=== PATIENT | male | born 1950 | race Caucasian/White ===

== ENCOUNTER → 2017-06-14 | Outpatient (CLI) | payer MEDICARE, BC ==
--- NOTE | 2017-06-14 12:05 | NM ---
EXAMINATION TYPE: NM stress cardiolite complete DATE OF EXAM: 06/14/2017 COMPARISON: NONE HISTORY: History of hypertension and tobacco use quit 28 years ago as well as diabetes presents with chest pain and abnormal EKG. TECHNIQUE: After the intravenous administration of 10.3 mCi Tc 99m Sestamibi - Rest images obtained 45 minutes post injection. The patient exercised using a KAREN protocol and 1 minute prior to peak exercise was injected with 27.5 mCi Tc 99m Sestamibi - Stress images obtained 10 minutes post injecti on. FINDINGS: Targeted heart rate was achieved during performance of the study. Review of stress and rest SPECT butch ges demonstrates no distinct perfusion abnormality. There is poor uptake involving inferior lateral left ventricular wall which area of old infarct cannot be excluded though there is no significant hyp okinesia at this level and there is improved color intensity on stress images versus rest images. Gat ed analysis shows normal wall motion with an estimated left ventricular ejection fraction of 48 %. IMPRESSION: No scintigraphic evidence for reversible ischemia
--- NOTE | 2017-06-14 13:32 | ECHOF ---
Referral Reason:I10 Hypertension, R07.9 Chest pain MEASUREMENTS -------- HEIGHT: 162.6 cm WEIGHT: 97.1 kg BP: IVSd: 1.3 cm (0.6 - 1.1) LVIDd: 4.5 cm (3.9 - 5.3) LVPWd: 1.3 cm (0.6 - 1.1) IVSs: 1.5 cm LVIDs: 3.9 cm LVPWs: 1.4 cm LA Diam: 3.5 cm (2.7 - 3.8) LAESV Index (A-L): 25.34 ml/m Ao Diam: 2.9 cm (2.0 - 3.7) AV Cusp: 2.0 cm (1.5 - 2.6) LA Diam: 3.9 cm (2.7 - 3.8) MV EXCURSION: 16.312 mm (> 18.000) MV EF SLOPE: 55 mm/s (70 - 150) EPSS: 0.8 cm MV E Gennaro: 0.28 m/s MV DecT: 312 ms MV A Gennaro: 0.72 m/s MV E/A Ratio: 0.39 RAP: 5.00 mmHg RVSP: 12.26 mmHg FINDINGS -------- Sinus rhythm. This was a technically good study. The left ventricular size is normal. There is mild concentric left ventricular hypertrophy. Overa ll left ventricular systolic function is low-normal with, an EF between 50 - 55 %. The right ventricle is normal in size. The left atrial size is normal. Normal LA size by volume 22+/-6 ml/m2. The right atrial size is normal. There is mild aortic valve sclerosis. There is no evidence of aortic regurgitation. Mild mitral annular calcification present. Mild mitral regurgitation is present. Mild tricuspid regurgitation present. There is no evidence of pulmonary hypertension. The right v entricular systolic pressure, as measured by Doppler, is 12.26mmHg. There is no pulmonic regurgitation present. The aortic root size is normal. There is no pericardial effusion. CONCLUSIONS -------- 1. The left ventricular size is normal. 2. There is mild concentric left ventricular hypertrophy. 3. Overall left ventricular systolic function is low-normal with, an EF between 50 - 55 %. 4. There is mild aortic valve sclerosis. 5. Mild mitral annular calcification present. 6. Mild mitral regurgitation is present. 7. Mild tricuspid regurgitation present. 8. There is no evidence of pulmonary hypertension. 9. The right ventricular systolic pressure, as measured by Doppler, is 12.26mmHg. 10. There is no pulmonic regurgitation present. 11. The aortic root size is normal. 12. There is no pericardial effusion. ACADEMIC SERVICES PROFESSIONAL: Brittaney Culp RDCS
--- NOTE | 2017-06-14 14:01 | EST ---
EXERCISE STRESS AGE: 68 SEX: M HT: 71" WT: 214 PROTOCOL: Connor Cardiolite Stress Test STAGE: III DURATION OF EXERCISE: 10:00 HEART RATE REST: 84 BLOOD PRESSURE REST: 134/96 MAXIMUM HEART RATE ACHIEVED: 132 MAXIMUM BLOOD PRESSURE: 223/110 85% MPHR: 130 100% MPHR: 153 METS: 11.7 INDICATIONS: Chest pain, abnormal EKG CLINICAL INFORMATION: STRESS DATA: Pretesting physical examination showed a heart rate of 84, pressure is 134/96 mmHg. Baseline EKG showed sinus mechanism. The patient exercised on the treadmill according to Connor protocol for a total of 10 minutes and achieved 11.7 METS. Max heart rate was 132, which is about 86% of maximum predicted heart rate. Maximum blood pressure was 1 was 223/110 mmHg. Clinically, the patient did not have any symptoms of chest pain or discomfort. The EKG did not reveal any significant ST or T- wave abnormalities consistent with ischemia or meeting the criteria for ischemia. CONCLUSION: 1. Excellent exercise capacity. 2. Normal EKG in response to exercise. 3. Please follow up on the Cardiolite portion on separate report from the Radiology Department. MMODL / IJN: [id number] /
== END | disposition home or self-care (01) ==
LOC: RADNMMAIN 07:59
PROVIDERS: ATTEND Family Medicine
DX: I10 Essential (primary) hypertension (principal)
CPT/HCPCS: 93017; 93306; 78452; A9500

== ENCOUNTER → 2017-06-18 | Outpatient (CLI) | payer MEDICARE, BC ==
--- NOTE | 2017-06-18 09:40 | US ---
EXAMINATION TYPE: US carotid duplex BILAT DATE OF EXAM: 06/18/2017 COMPARISON: NONE CLINICAL HISTORY: I65.29 Carotid artery stenosis. Chest pain EXAM MEASUREMENTS: RIGHT: Peak Systolic Velocity (PSV) cm/sec ----- Right CCA: 80.8 ----- Right ICA: 72.6 ----- Right ECA: 118.0 ICA/CCA ratio: 0.9 RIGHT: End Diastole cm/sec ----- Right CCA: 22.1 ----- Right ICA: 18.1 ----- Right ECA: 21.6 LEFT: Peak Systolic Velocity (PSV) cm/sec ----- Left CCA: 79.3 ----- Left ICA: 59.0 ----- Left ECA: 76.3 ICA/CCA ratio: 0.7 LEFT: End Diastole cm/sec ----- Left CCA: 23.8 ----- Left ICA: 13.3 ----- Left ECA: 15.2 VERTEBRALS (direction of flow): Right Vertebral: Antegrade Left Vertebral: Antegrade Rhythm: Arrhythmia Bilateral intimal thickening, plaque bilateral bulb, no elevated velocities, no significant stenosis, limited visualization of bilateral ICA due to deep vessels. Suboptimal study per technologist due to tortuous course of vessels. Visualized portion of carotid bu lbs show mild eccentric plaque on the left. Velocity measurements and ratios in visualized portion of both internal carotid arteries is within normal limits. Technologist notes arrhythmia during real-ti me scanning. IMPRESSION: Suboptimal study without hemodynamically significant stenosis seen in either internal c arotid artery . Note is made of arrhythmia during real-time scanning, if this is not known finding fu rther investigation with 24-hour Holter monitoring would be advised Criteria for Assigning % of Stenosis / Diameter reduction (Estimation based on the indirect measurements of the internal carotid artery velocities (ICA PSV). 1. Normal (no stenosis)=ICA PSV < 125 cm/s: ratio < 2.0: ICA EDV<40 cm/s. 2. Less than 50% stenosis=ICA PSV < 125 cm/s: ratio < 2.0: ICA EDV<40 cm/s. 3. 50 to 69% stenosis=ICA PSV of 125 to 230 cm/s: ration 2.0 ? 4.0: ICA EDV 40-100 cm/s. 4. Greater than 70% stenosis to near occlusion= ICA PSV > 230 cm/s: ratio > 4.0: ICA EDV > 100 cm/s. 5. Near occlusion= ICA PSV velocities may be low or undetectable: variable ratio and ICA EDV. 6. Total occlusion=unable to detect flow.
--- NOTE | 2017-06-18 09:41 | US ---
EXAMINATION TYPE: US duplex aorta DATE OF EXAM: 06/18/2017 COMPARISON: NONE CLINICAL HISTORY: Z13.9 AAA Screening. Chest pain EXAM MEASUREMENTS: Abdominal Aorta: Proximal: 2.2 x 2.4cm Mid: 2.0 x 2.3cm Distal: 1.8 x 1.8cm Right Iliac: 1.2 x 1.3cm Left Iliac: 1.0 x 1.3cm Difficult and limited study due to patient body habitus and overlying midline bowel gas. Visualized portions of abdominal aorta appears wnl, no AAA seen at this time. IMPRESSION: Suboptimal study but no convincing ultrasound evidence for abdominal aortic aneurysm.
== END | disposition home or self-care (01) ==
LOC: RADUSWWP 08:22
PROVIDERS: ATTEND Family Medicine
DX: Z13.6 Encounter for screening for cardiovascular disorders (principal); I65.29 Occlusion and stenosis of unspecified carotid artery
CPT/HCPCS: 93880; 93979

== ENCOUNTER → 2017-06-24 | Outpatient (CLI) | payer MEDICARE, BC ==
--- NOTE | 2017-06-28 14:34 | HM ---
HOLTER MONITOR REPORT The patient was monitored for 24 hours. Baseline rhythm is sinus mechanism with normal conduction. The average rate 83 beats per minute, minimum 49, maximum 147 beats per minute. Ventricular ectopic activity was present in the form of frequent ventricular ectopic activity with occasional couplets and triplets. Supraventricular ectopic activity was present in the form of rare single PACs. No symptoms were reported. CONCLUSION: 1. Sinus mechanism baseline rhythm. 2. Frequent ventricular ectopic activity with occasional couplets and triplets with 4 complex ventricular tachycardia. 3. Rare supraventricular ectopic activity. 4. No symptoms were reported. MMODL / IJN: [id number] / MTDD
== END | disposition home or self-care (01) ==
LOC: RADECHMAIN 13:02
PROVIDERS: ATTEND Physician Assistant
DX: I49.3 Ventricular premature depolarization (principal); I47.2 Ventricular tachycardia
CPT/HCPCS: 93225; 93226

== ENCOUNTER 2017-07-02 06:34 | Day surgery (SDC) | payer MEDICARE, BC ==
[~2017-07-02 06:34] MED LIST: LACTATED RINGERS 1,000 ML IV SCH
[2017-07-02 07:09] VITALS: TEMP 98.2
[2017-07-02 07:15] LABS: Glucose,Whole Blood 172 mg/dL (75-99)
[2017-07-02] MEDS ORDERED: LIDOCAINE 1% INJ 10MG/ML (20 ML MDV) ONE (07:40)
[2017-07-02] MEDS ORDERED: PROPOFOL 10 MG/ML 20 ML VIAL IV ONE (07:40)
--- NOTE | 2017-07-02 08:20 | P.OP ---
Date of Procedure: 07/02/17 Preoperative Diagnosis: Patient history colon polyps Postoperative Diagnosis: Polypoid lesion at cecum and removed with snare polypectomy piecemeal, Procedure(s) Performed: Colonoscopy Anesthesia: MAC Surgeon: Lia Norman Estimated Blood Loss (ml): 0 IV fluids (ml): 300 Pathology: other (Cecal polyp) Condition: stable Disposition: PACU Indications for Procedure: History: Polyps Operative Findings: Cecal polyp, diverticuli, internal hemorrhoids Description of Procedure: Patient was taken to the endoscopy suite and following sedation rectal exam was performed. Patient was noted to have adequate sphincter tone no masses. Colonoscope was passed through the anus into the rectum. Was passed up to the sigmoid colon to splenic flexure. Was passed through the transverse colon hepatic flexure right colon down to the area of the cecum. Scope circumferential observation of the mucosa revealed a lesion in the cecum which was removed with snare polypectomy piecemeal and retrieved. It appeared the entire lesion had been removed. There was no evidence of active bleeding at the termination of removal. The scope was then carefully withdrawn being careful to observe the mucosa in the right colon transverse colon left colon sigmoid colon and rectum. Aproximately 6 minutes was taken to remove the scope from the cecum to the rectum. Patient was noted to have diverticuli and internal hemorrhoids. The scope was retroflexed in the rectum. Impression/plan: 1. Internal hemorrhoids 2. Diverticuli 3. Polypoid lesion at the cecum removed with snare polypectomy and retrieved Plan: 1. Repeat scope in 1 year
--- NOTE | 2017-07-02 08:21 | P.DS ---
Providers Attending physician: Lia Norman Primary care physician: Dave Venegas Plan - Discharge Summary Discharge Rx Participant: No New Discharge Prescriptions: No Action Lisinopril [Prinivil] 10 mg PO QAM metFORMIN HCL [Glucophage] 1,000 mg PO BID [place]-3 Fatty Acids/Fish Oil [Fish Oil 1,000 mg Softgel] 1 tab PO DAILY Multivitamin [Men's Multi-Vitamin] 1 tab PO DAILY Calcium Carbonate [Calcium] 1 tab PO DAILY Glimepiride [Amaryl] 2 mg PO BID Silodosin [Rapaflo] 8 mg PO DAILY Aspirin 325 mg PO Q6H PRN PRN Reason: Pain Discharge Medication List Lisinopril [Prinivil] 10 mg PO QAM 06/23/14 [History] metFORMIN HCL [Glucophage] 1,000 mg PO BID 06/23/14 [History] Aspirin 325 mg PO Q6H PRN 06/28/17 [History] Calcium Carbonate [Calcium] 1 tab PO DAILY 06/28/17 [History] Glimepiride [Amaryl] 2 mg PO BID 06/28/17 [History] Multivitamin [Men's Multi-Vitamin] 1 tab PO DAILY 06/28/17 [History] [place]-3 Fatty Acids/Fish Oil [Fish Oil 1,000 mg Softgel] 1 tab PO DAILY [History] Silodosin [Rapaflo] 8 mg PO DAILY 06/28/17 [History] Follow up Appointment(s)/Referral(s): Lia Norman MD [STAFF PHYSICIAN] - 1 Week Patient Instructions/Handouts: *Surgery [facility] - (Anesthesia) Endoscopy Discharge Instructions, Colonoscopy (DC) Discharge Disposition: HOME SELF-CARE
[2017-07-02 08:33] VITALS: BP 107/70; PULSE 72; RESP 18
== END 2017-07-02 08:58 | disposition home or self-care (01) ==
LOC: ORWHC2ENDO 06:34
PROVIDERS: ATTEND Surgery
DX: Z12.11 Encounter for screening for malignant neoplasm of colon (principal); D12.0 Benign neoplasm of cecum; K57.30 Diverticulosis of large intestine without perforation or abscess without bleeding; K64.8 Other hemorrhoids; Z86.010 Personal history of colon polyps; Z80.0 Family history of malignant neoplasm of digestive organs; R25.1 Tremor, unspecified; R39.198 Other difficulties with micturition; K59.00 Constipation, unspecified; E11.9 Type 2 diabetes mellitus without complications; I10 Essential (primary) hypertension; Z79.84 Long term (current) use of oral hypoglycemic drugs; Z79.899 Other long term (current) drug therapy; Z79.82 Long term (current) use of aspirin; Z87.891 Personal history of nicotine dependence
CPT/HCPCS: 88305; 45385; J2001; J2704; 45380

== ENCOUNTER 2018-07-03 07:47 | Day surgery (SDC) | payer MEDICARE, BC ==
[2018-07-01 14:57] VITALS: BMI 29.9
[~2018-07-03 07:47] MED LIST changes: +LIDOCAINE 1% 20 ML VIAL (10MG/ML) FOR IV START INTRADERMA PRN; +MIDAZOLAM (PF) 2 MG/2 ML VIAL IV PRN
[2018-07-03 08:23] VITALS: RESP 18; TEMP 97.5
[2018-07-03 08:36] LABS: Glucose,Whole Blood 218 mg/dL (75-99)
[2018-07-03] MEDS ORDERED: PROPOFOL 10 MG/ML 20 ML VIAL IV ONE (08:59)
[2018-07-03] MEDS ORDERED: LIDOCAINE 1% INJ 10MG/ML (20 ML MDV) ONE (08:59)
--- NOTE | 2018-07-03 09:28 | P.GSHP ---
History of Present Illness H&P Date: 07/03/18 CHIEF COMPLAINT: Colon screen HISTORY OF PRESENT ILLNESS: The patient is a 68-year-old male who presents for colon screen. Lower endoscopy was offered for further evaluation and management. PAST MEDICAL HISTORY: Please see list. PAST SURGICAL HISTORY: Please see list. MEDICATIONS: Please see list. ALLERGIES: Please see list. SOCIAL HISTORY: No illicit drug use FAMILY HISTORY: No reports of Crohn disease or ulcerative colitis. REVIEW OF ORGAN SYSTEMS: CONSTITUTIONAL: No reports of fevers or chills. PHYSICAL EXAM: VITAL SIGNS: Stable GENERAL: Well-developed pleasant in no acute distress. HEENT: No scleral icterus. Extraocular movements grossly intact. Moist buccal mucosa. NECK: Supple without lymphadenopathy. CHEST: Unlabored respirations. Equal bilateral excursions. CARDIOVASCULAR: Regular rate and rhythm. Distal 2+ pulses. ABDOMEN: Soft, nontender, nondistended. MUSCULOSKELETAL: No clubbing, cyanosis, or edema. ASSESSMENT: 1. Colon screen. PLAN: 1. Recommend proceeding with a lower endoscopy Past Medical History Past Medical History: Diabetes Mellitus, Hypertension Additional Past Medical History / Comment(s): kidney insufficiency. PANCREAS TROUBLE? History of Any Multi-Drug Resistant Organisms: None Reported Past Surgical History: Hernia Repair, Orthopedic Surgery Additional Past Surgical History / Comment(s): ORIF LEFT LEG. COLONOSCOPY Past Anesthesia/Blood Transfusion Reactions: No Reported Reaction, Motion Sickness Past Psychological History: No Psychological Hx Reported Smoking Status: Former smoker Past Alcohol Use History: None Reported Additional Past Alcohol Use History / Comment(s): QUIT 1989, FOR 20 YRS, 2 PPD. Past Drug Use History: None Reported - Past Family History Mother Family Medical History: No Reported History Brother(s) Family Medical History: Cancer Medications and Allergies Home Medications Medication Instructions Recorded Confirmed Type Lisinopril [Prinivil] 10 mg PO QAM 06/23/14 07/01/18 History metFORMIN HCL [Glucophage] 1,000 mg PO BID 06/23/14 07/01/18 History Calcium Carbonate [Calcium] 1 tab PO DAILY 06/28/17 07/01/18 History Glimepiride [Amaryl] 4 mg PO BID 06/28/17 07/01/18 History Multivitamin [Men's Multi-Vitamin] 1 tab PO DAILY 06/28/17 07/01/18 History [place]-3 Fatty Acids/Fish Oil [Fish 1 tab PO DAILY 06/28/17 07/01/18 History Oil 1,000 mg Softgel] Primidone [Mysoline] 2.5 tab PO BID 07/03/18 07/03/18 History Allergies Allergy/AdvReac Type Severity Reaction Status Date / Time No Known Allergies Allergy Verified 07/01/18 14:52 Surgical - Exam Vital Signs Temp Pulse Resp BP Pulse Ox 97.5 F L 85 18 163/91 95 07/03/18 08:21 07/03/18 08:21 07/03/18 08:21 07/03/18 08:21 07/03/18 08:21 Results - Labs Abnormal Lab Results - Last 24 Hours (Table) 07/03/18 Range/Units 08:25 POC Glucose (mg/dL) 218 H (75-99) mg/dL
--- NOTE | 2018-07-03 09:32 | P.PCN ---
Date of Procedure: 07/03/18 Description of Procedure: PREOPERATIVE DIAGNOSIS: Personal history of high risk colon polyps Family history of colon cancer, brother Colonoscopy screening. POSTOPERATIVE DIAGNOSIS: Personal history of high risk colon polyps Family history of colon cancer, brother Colonoscopy screening. Arteriovenous malformation, cecum Severe sigmoid diverticulosis OPERATION: Colonoscopy with ablation using argon beam sling operator for AV malformation Colonoscopy to the ileocecal valve and appendiceal orifice. SURGEON: Paula Reynaga MD. ANESTHESIA: MAC. INDICATIONS: The patient is a 68-year-old male who presents for colonoscopy screening. Benefits and risks were described and informed consent was obtained. DESCRIPTION OF PROCEDURE: The patient had undergone Gatorade, MiraLAX and Dulcolax prep. He had been brought into the operating room and laid in the left lateral decubitus position. The prostate was smooth and without abnormality. After adequate intravenous sedation, the rectum was examined with 2% lidocaine jelly. No external hemorrhoids were encountered. The rectal tone was within normal limits. No lesions were palpated in the rectal vault. An Olympus colonoscope was advanced until the ileocecal valve and appendiceal orifice were clearly viewed. The prep was fair with residual semi-solid stool. At the cecum, AV malformation with recent bleed was ablated using argon beam. The scope was removed with visualization of each mucosal fold. Sigmoid diverticulosis was encountered. No colonic polyps were found. No evidence of focal colitis was found. Retroflexion of the scope demonstrated grade 1 internal hemorrhoids without active bleeding or inflammation. The colon was desufflated. The patient had tolerated the procedure well. Withdrawal time was over 6 minutes. FINDINGS: Internal hemorrhoids, grade 1 No external prolapsed hemorrhoids. Arteriovenous malformations at the cecum, AV malformation with recent bleed was ablated using argon beam Sigmoid diverticulosis was encountered. No adenomatous polyps. No focal colitis. RECOMMENDATIONS: With history of multiple high risk colon polyps, repeat colonoscopy 2 years, 2020 Plan - Discharge Summary Discharge Rx Participant: No New Discharge Prescriptions: No Action Lisinopril [Prinivil] 10 mg PO QAM metFORMIN HCL [Glucophage] 1,000 mg PO BID [place]-3 Fatty Acids/Fish Oil [Fish Oil 1,000 mg Softgel] 1 tab PO DAILY Multivitamin [Men's Multi-Vitamin] 1 tab PO DAILY Calcium Carbonate [Calcium] 1 tab PO DAILY Glimepiride [Amaryl] 4 mg PO BID Primidone [Mysoline] 2.5 tab PO BID Discharge Medication List Lisinopril [Prinivil] 10 mg PO QAM 06/23/14 [History] metFORMIN HCL [Glucophage] 1,000 mg PO BID 06/23/14 [History] Calcium Carbonate [Calcium] 1 tab PO DAILY 06/28/17 [History] Glimepiride [Amaryl] 4 mg PO BID 06/28/17 [History] Multivitamin [Men's Multi-Vitamin] 1 tab PO DAILY 06/28/17 [History] [place]-3 Fatty Acids/Fish Oil [Fish Oil 1,000 mg Softgel] 1 tab PO DAILY [History] Primidone [Mysoline] 2.5 tab PO BID 07/03/18 [History] Follow up Appointment(s)/Referral(s): Paula Reynaga MD [STAFF PHYSICIAN] - As Needed Patient Instructions/Handouts: Diverticulosis (GEN), Arteriovenous Malformation (DC), Diverticulosis Diet (GEN) Activity/Diet/Wound Care/Special Instructions: Repeat colonoscopy in 2 years, 2020 Discharge Disposition: HOME SELF-CARE
[2018-07-03 09:52] VITALS: BP 118/78; PULSE 72
== END 2018-07-03 10:11 | disposition home or self-care (01) ==
LOC: ORWHC2ENDO 07:47
PROVIDERS: ATTEND Surgery Plastic and Reconstructive Surgery
DX: Z12.11 Encounter for screening for malignant neoplasm of colon (principal); K64.0 First degree hemorrhoids; K57.30 Diverticulosis of large intestine without perforation or abscess without bleeding; E11.9 Type 2 diabetes mellitus without complications; Q27.33 Arteriovenous malformation of digestive system vessel; I10 Essential (primary) hypertension; Z87.891 Personal history of nicotine dependence; Z86.010 Personal history of colon polyps; Z80.0 Family history of malignant neoplasm of digestive organs; Z79.84 Long term (current) use of oral hypoglycemic drugs; Z79.899 Other long term (current) drug therapy
CPT/HCPCS: 45388; J2001; J2704

== ENCOUNTER → 2019-11-18 | Outpatient (CLI) | payer MEDICARE ==
--- NOTE | 2019-11-18 16:34 | ECHOS ---
STRESS ECHOCARDIOGRAM LUMASON: Vial INDICATIONS: Chest pain. MEDICATIONS: BASELINE HEART RATE: 68 BASELINE BLOOD PRESSURE: 151/81 MAXIMUM HEART RATE: 138 MAXIMUM BLOOD PRESSURE: 209/100 85% MPHR: 128 100% MPHR: 151 METS: 10.9 MAXIMUM STAGE REACHED: IV TOTAL EXERCISE TIME: 9:30 CLINICAL INFORMATION: STRESS DATA: Heart rate is 68, pressure is 151/81 mmHg. Baseline EKG showed sinus mechanism. The patient exercised on a treadmill according to Connor protocol for a total of 9 minutes and 30 seconds and achieved 10.9 METS. Max heart rate was 138, which is about 91% of maximum predicted heart rate. Maximum blood pressure was 209/100 mmHg. Clinically the patient did not have any symptoms of chest pain or chest discomfort during the testing or on recovery. The EKG showed about 2 mm horizontal and downsloping ST-segment changes concerning for ischemia. ECHOCARDIOGRAM IMAGES: Echocardiogram images from parasternal long axis view, parasternal short axis view, apical 4-chamber and apical 2-chamber views were obtained as the baseline images, at the peak of the heart rate as well as on recovery. The echocardiogram images showed wall motion abnormalities in the septum concerning for severe underlying coronary artery disease. CONCLUSION: 1. Excellent exercise tolerance. 2. Abnormal EKG in response to exercise with evidence of ST changes concerning for ischemia. 3. Abnormal echocardiogram in response to exercise as well with evidence of wall motion abnormalities concerning for ischemia. MMODL / IJN: [id number] /
== END | disposition home or self-care (01) ==
LOC: RADNMMAIN 08:56
PROVIDERS: ATTEND Family Medicine
DX: R94.31 Abnormal electrocardiogram [ECG] [EKG] (principal)
CPT/HCPCS: 93351

== ENCOUNTER 2020-10-18 07:03 | Day surgery (SDC) | payer MEDICARE ==
[2020-10-13 15:11] VITALS: BMI 30.4
[~2020-10-18 07:03] MED LIST changes: +LIDOCAINE 1% (10MG/ML) FOR IV START INTRADERMA PRN; -LIDOCAINE 1% 20 ML VIAL (10MG/ML) FOR IV START INTRADERMA PRN; -MIDAZOLAM (PF) 2 MG/2 ML VIAL IV PRN
[2020-10-18 07:40] VITALS: TEMP 977
[2020-10-18 07:41] LABS: Glucose,Whole Blood 166 mg/dL (75-99)
[2020-10-18] MEDS ORDERED: PROPOFOL 10 MG/ML 20 ML VIAL IV ONE (08:05)
--- NOTE | 2020-10-18 08:11 | P.GSHP ---
History of Present Illness H&P Date: 10/18/20 Chief Complaint: Colon cancer screening 70-year-old male with personal history of colon polyps and a family history of colon cancer in his brother. Colonoscopy 2 years ago. He was found to have AVMs at the cecum at that time. Doing well now. He is asymptomatic currently. Past Medical History Past Medical History: Coronary Artery Disease (CAD), Diabetes Mellitus, Hyperlipidemia, Hypertension, Renal Disease Additional Past Medical History / Comment(s): tremors,hx colon polyps, kidney insufficiency. History of Any Multi-Drug Resistant Organisms: None Reported Past Surgical History: Coronary Bypass/CABG, Hernia Repair, Orthopedic Surgery Additional Past Surgical History / Comment(s): ORIF LEFT LEG. COLONOSCOPY. CABG-4 vessel Past Anesthesia/Blood Transfusion Reactions: No Reported Reaction Past Psychological History: No Psychological Hx Reported Smoking Status: Former smoker Past Alcohol Use History: None Reported Additional Past Alcohol Use History / Comment(s): QUIT 1989, FOR 20 YRS, 2 PPD. Past Drug Use History: None Reported - Past Family History Mother Family Medical History: No Reported History Brother(s) Family Medical History: Cancer Medications and Allergies Home Medications Medication Instructions Recorded Confirmed Type Lisinopril [Prinivil] 20 mg PO BID 06/23/14 10/13/20 History metFORMIN HCL [Glucophage] 1,000 mg PO BID 06/23/14 10/13/20 History Calcium Carbonate [Calcium] 600 tab PO BID 06/28/17 10/13/20 History Glimepiride [Amaryl] 4 mg PO BID 06/28/17 10/13/20 History Multivitamin [Men's Multi-Vitamin] 1 tab PO DAILY 06/28/17 10/13/20 History [place]-3 Fatty Acids/Fish Oil [Fish 1,200 mg PO BID 06/28/17 10/13/20 History Oil 1,000 mg Softgel] Primidone [Mysoline] 50 tab PO QAM 07/03/18 10/13/20 History Aspirin 81 mg PO DAILY 10/13/20 10/13/20 History Atorvastatin [Lipitor] 20 mg PO DAILY 10/13/20 10/13/20 History Empagliflozin [Jardiance] 20 mg PO DAILY 10/13/20 10/13/20 History Isosorbide Mononitrate [Imdur] 120 mg PO 1400 10/13/20 10/13/20 History Metoprolol Tartrate [Lopressor] 50 mg PO BID 10/13/20 10/13/20 History amLODIPine [Norvasc] 10 mg PO QAM 10/13/20 10/13/20 History hydrALAZINE HCL [Apresoline] 50 mg PO TID 10/13/20 10/13/20 History Allergies Allergy/AdvReac Type Severity Reaction Status Date / Time No Known Allergies Allergy Verified 10/13/20 14:58 Surgical - Exam Vital Signs Temp Pulse Resp BP Pulse Ox 977 F H 90 20 136/79 97 10/18/20 07:25 10/18/20 07:25 10/18/20 07:25 10/18/20 07:25 10/18/20 07:25 Physical exam: General: Well-developed, well-nourished HEENT: Normocephalic, sclerae nonicteric Abdomen: Nontender, nondistended Extremities: No edema Neuro: Alert and oriented Results - Labs Abnormal Lab Results - Last 24 Hours (Table) 10/18/20 Range/Units 07:34 POC Glucose (mg/dL) 166 H (75-99) mg/dL Assessment and Plan (1) Colon cancer screening Narrative/Plan: Will proceed with colonoscopy at this time Current Visit: Yes Status: Acute Code(s): Z12.11 - ENCOUNTER FOR SCREENING FOR MALIGNANT NEOPLASM OF COLON SNOMED Code(s): 069323282
--- NOTE | 2020-10-18 08:30 | P.PCN ---
Date of Procedure: 10/18/20 Procedure(s) Performed: PREOPERATIVE DIAGNOSIS: Colon cancer screening, personal history of colon polyps, family history of colon cancer POSTOPERATIVE DIAGNOSIS: Small cecal polyp, diverticulosis PROCEDURE: Colonoscopy with snare polypectomy ANESTHESIA: MAC SURGEON: Kishan Johnston M.D. SPECIMENS: Cecal polyp ENDOSCOPIC PROCEDURE: The patient was placed on the endoscopy table in the left decubitus position. The Olympus colonoscope was inserted into the anus and passed under direct visualization to the base of the cecum. The appendiceal orifice was visualized. From that point the scope was slowly withdrawn inspecting all surfaces carefully. There was a small polyp at the base the cecum. This was removed using the snare with cautery technique. The remainder of the cecum ascending, transverse, descending, sigmoid and rectum appeared normal. There was mild left-sided diverticulosis noted. Digital rectal examination was normal. The patient was taken to the recovery room in stable condition per anesthesia guidelines. RECOMMENDATIONS: Wait biopsy results. Anticipate follow-up colonoscopy 3-5 years.
[2020-10-18 08:36] VITALS: RESP 16
[2020-10-18 08:48] VITALS: PULSE 53
[2020-10-18 08:55] VITALS: BP 104/67
== END 2020-10-18 09:08 | disposition home or self-care (01) ==
LOC: ORWHC2ENDO 07:03
PROVIDERS: ATTEND Surgery
DX: Z12.11 Encounter for screening for malignant neoplasm of colon (principal); Z86.010 Personal history of colon polyps; Z80.0 Family history of malignant neoplasm of digestive organs; D12.0 Benign neoplasm of cecum; K57.92 Diverticulitis of intestine, part unspecified, without perforation or abscess without bleeding; I25.10 Atherosclerotic heart disease of native coronary artery without angina pectoris; E11.9 Type 2 diabetes mellitus without complications; E78.5 Hyperlipidemia, unspecified; Z87.891 Personal history of nicotine dependence; I10 Essential (primary) hypertension; Z95.1 Presence of aortocoronary bypass graft; Z79.899 Other long term (current) drug therapy; Z79.82 Long term (current) use of aspirin; N28.9 Disorder of kidney and ureter, unspecified; Z79.84 Long term (current) use of oral hypoglycemic drugs
CPT/HCPCS: 88305; 45385; J2704

== ENCOUNTER → 2022-03-19 | Outpatient (CLI) | payer MEDICARE ==
--- NOTE | 2022-03-19 09:14 | US ---
EXAMINATION TYPE: US carotid duplex BILAT DATE OF EXAM: 03/19/2022 COMPARISON: None CLINICAL HISTORY: 72-year-old male I65.29 OCCLUSION STENOSIS CAROTID ARTERY. Stenosis. Prior smoker. TECHNIQUE: Carotid duplex ultrasound examination. Indirect Doppler criteria was utilized. 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 No elevated velocities at this time. Mild plaque seen within bilateral bulbs. IMPRESSION: Limited assessment of the mid to upper right ICA due to high bifurcation and limitations of body habi tus. No hemodynamically significant proximal ICA stenosis on either side. Criteria for Assigning % of Stenosis / Diameter reduction (Estimation based on the indirect measurements of the internal carotid artery velocities (ICA PSV). 1. Normal (no stenosis)=ICA PSV < 125 cm/s: ratio < 2.0: ICA EDV<40 cm/s. 2. Less than 50% stenosis=ICA PSV < 125 cm/s: ratio < 2.0: ICA EDV<40 cm/s. 3. 50 to 69% stenosis=ICA PSV of 125 to 230 cm/s: ration 2.0 ? 4.0: ICA EDV 40-100 cm/s. 4. Greater than 70% stenosis to near occlusion= ICA PSV > 230 cm/s: ratio > 4.0: ICA EDV > 100 cm/s. 5. Near occlusion= ICA PSV velocities may be low or undetectable: variable ratio and ICA EDV. 6. Total occlusion=unable to detect flow.
== END | disposition home or self-care (01) ==
LOC: RADUSWWP 07:11
PROVIDERS: ATTEND Family Medicine
DX: I65.23 Occlusion and stenosis of bilateral carotid arteries (principal)
CPT/HCPCS: 93880